=== PATIENT | female | born 1990 | race Hispanic/Latino ===

== ENCOUNTER → 2017-02-26 | Outpatient (CLI) | payer OTHER ==
--- NOTE | 2017-02-27 10:39 | Diagnostic Imaging Report ---
INDICATION: survey. TECHNIQUE: Multiple real-time grayscale images were obtained over the gravid uterus. COMPARISON: None FINDINGS: Transabdominal and limited transvaginal views were obtained. The examination demonstrates no abnormalities. There is normal cord insertion. The cervix is normal length measuring 4.1 cm. Gestational age by today's ultrasound is 21 weeks and 1 day. No previa is seen. IMPRESSION: There is a single live intrauterine in cephalic position with normal heart rate. Gestational age by today's ultrasound is 21 weeks and 1 day. Biometrical measurements are as follows: Biparietal 5.07 cm, age 21 weeks 3 days. Head circumference 18.2 cm, age 20 weeks 5 days. Abdominal circumference 16.08 cm, age 21 weeks 2 days. Femur length 3.4 cm, age 20 weeks 5 days. Sonographic estimate age: 21 weeks 1 days. Sonographic estimated date of delivery: 07/08/2017. Estimated Weight: 387 gm (+/- +/- 57 gm). LMP percentile: 34%. heart rate: 144 beats per minute. Cervical length: 4.1 CM cm. number: 1 of 1. Dictated by: Dictated on workstation # [id number]
== END ==
LOC: RAD 17:05
PROVIDERS: ATTEND Obstetrics & Gynecology
DX: Z36 Encounter for antenatal screening of mother (principal); Z3A.21 21 weeks gestation of pregnancy
CPT/HCPCS: 76805; 76817

== ENCOUNTER 2017-07-08 18:00 | Inpatient (IN) | payer OTHER ==
[~2017-07-08] VITALS: Ht 167.6 cm; Wt 83.9 kg
[2017-07-08 18:05] VITALS: BP 121/76
[2017-07-08] MEDS ORDERED: PYRI25TA3 PO (18:41)
[2017-07-08] MEDS ORDERED: DOXY25TA46 PO (18:41)
[2017-07-08] MEDS ORDERED: PREN1TAB86 PO (18:41)
[2017-07-08] MEDS ORDERED: D5 LR IV SOLUTION 1,000 ML IV ONE (20:08)
[2017-07-08] MEDS: D5 LR IV SOLUTION 1,000 ML IV SCH (20:45)
[2017-07-08 21:09] LABS: BASOPHILS % (AUTO) 0 % (0-10); EOSINOPHILS # (AUTO) 0.1 10^3/uL (0.0-0.3); EOSINOPHILS % (AUTO) 1 % (0-10); LYMPHOCYTES # (AUTO) 1.8 X 10^3 (1.0-4.0); LYMPHOCYTES % (AUTO) 31 % (12-44); MEAN CORPUSCULAR HEMOGLOBIN 28 PG (25-34); MEAN CORPUSCULAR HGB CONC 33 G/DL (32-36); MEAN CORPUSCULAR VOLUME 85 FL (80-99); MEAN PLATELET VOLUME 10.7 FL (7.4-10.4); MONOCYTES # (AUTO) 0.9 X 10^3 (0.0-1.0); MONOCYTES % (AUTO) 16 % (0-12); NEUTROPHILS % (AUTO) 52 % (42-75); PLATELET COUNT 276 10^3/uL (130-400); RED BLOOD COUNT 4.65 10^6/uL (4.35-5.85); WHITE BLOOD COUNT 5.8 10^3/uL (4.3-11.0)
[2017-07-08] MEDS ORDERED: HYDROmorphone (DILAUDID) 2 MG/ML VIAL IVP ONE (21:15)
[2017-07-08] MEDS ORDERED: MINERAL OIL CONCENTRATE 99.9% 15 ML UDC TOP PRN (21:15)
[2017-07-08 23:56] VITALS: BP 121/76
[2017-07-09] VITALS (50 sets, daily range): BP systolic 91–132; BP diastolic 46–78
[2017-07-09] MEDS: D5 LR IV SOLUTION 1,000 ML IV SCH (00:45)
[2017-07-09] MEDS: CATHETER FLUSH 10 ML SYR IV SCH ×2 (05:35→07:16)
--- NOTE | 2017-07-09 08:44 | History & Physical-OB ---
OB - Chief Complaint & HPI Date/Time Date of Admission: Date of Admission: Jul 08, 2017 at 9:07 pm Time Seen by Provider: 08:25 Chief Complaint/History OB-Reason for Admission/Chief: Onset of Labor Hx : 2 Hx Para: 0 Expected Date of Delivery: Jul 09, 2017 Gestational Age in Weeks: 40 Other reason for admission: This 26-year-old is 40 weeks gestation and presented last night in early labor monitoring overnight revealed regular contractions with a small amount of cervical change. Admission Nurse Assessment Rev: Yes History of Labs O pos Antibody neg RI RPR NR HBsAg NR HIV NR GC neg GBS neg Allergies and Home Medications Allergies Coded Allergies: No Known Drug Allergies (Unverified , 07/08/17) Home Medications Doxylamine Succinate 25 Mg Tablet, 25 MG PO HS PRN for SLEEP, (Reported) Vit W-Ca,Fe,FA(<1 mg) 1 Each Tablet, 1 TAB PO DAILY, (Reported) Pyridoxine HCl 25 Mg Tablet, 25 MG PO DAILY, (Reported) OB - History Hx of Present Care: Yes Ultrasounds: Normal mid trimester US Obstetrical Complications: None Medical Complications: None Obstetrical History Hx : 2 Hx Para: 1 Hx Total # of Abortions (Spona: 1 Patient Past Medical History none Social History/Family History Recent Infectious Disease Expo: No Alcohol Use: Denies Use Recreational Drug Use: No OB - Admission Exam Physical Exam Date Seen by Provider: Jul 09, 2017 Time Seen by Provider: 08:20 Vitals: Vital Signs 07/09/17 04:00 Temp 96.9 Pulse 83 Resp 18 B/P (MAP) 95/56 O2 Delivery Room Air HEENT: NCAT Heart: Rhythm Normal Lungs: Clear Abdomen: Gravid Extremities: Normal Reflexes: Normal Cervical Dilatation: 2cm Effacement: 75% Station: -1 Membranes: Intact Heart Rate: 140's Accelerations: Accelerations Present Decelerations: No Decelerations Short Term Variability: Present Senior Care Variability: Average (6-25) Contractions on Admission: 6-10 Minutes Apart Intensity: Moderate Labs Laboratory Tests Test 07/08/17 20:45 Range/Units White Blood Count 5.8 4.3-11.0 10^3/uL Red Blood Count 4.65 4.35-5.85 10^6/uL Hemoglobin 13.0 11.5-16.0 G/DL Hematocrit 39 35-52 % Mean Corpuscular Volume 85 80-99 FL Mean Corpuscular Hemoglobin 28 25-34 PG Mean Corpuscular Hemoglobin Concent 33 32-36 G/DL Red Cell Distribution Width 13.0 10.0-14.5 % Platelet Count 276 130-400 10^3/uL Mean Platelet Volume 10.7 H 7.4-10.4 FL Neutrophils (%) (Auto) 52 42-75 % Lymphocytes (%) (Auto) 31 12-44 % Monocytes (%) (Auto) 16 H 0-12 % Eosinophils (%) (Auto) 1 0-10 % Basophils (%) (Auto) 0 0-10 % Neutrophils # (Auto) 3.0 1.8-7.8 X 10^3 Lymphocytes # (Auto) 1.8 1.0-4.0 X 10^3 Monocytes # (Auto) 0.9 0.0-1.0 X 10^3 Eosinophils # (Auto) 0.1 0.0-0.3 10^3/uL Basophils # (Auto) 0.0 0.0-0.1 10^3/uL OB - Assessment/Plan/Diagnosis Assessment Assessment: active labor Plan Other Plan AROM this AM clear fluid noted. Discharge Diagnosis Diagnosis: 26 yo @ 40 weeks GBS neg OBDULIO ANSARI DO Jul 09, 2017 8:44 am
[2017-07-09] MEDS ORDERED: OXYTOCIN/NORMAL SALINE 500 ML IV SCH (12:29)
[2017-07-09] MEDS ORDERED: ONDANSETRON 4 MG/2 ML (SDV) Z0FRAN ONE (22:35)
[2017-07-09] MEDS ORDERED: LIDOCAINE/EPI 2% 1:200,00 (XYLOCAINE) 10 ML VIAL ONE (23:55)
[2017-07-10] VITALS (13 sets, daily range): BP systolic 96–124; BP diastolic 50–76
[2017-07-10] MEDS ORDERED: OXYTOCIN/NORMAL SALINE 500 ML IV SCH (01:12)
[2017-07-10] MEDS ORDERED: MEASLES,MUMPS,RUBELLA 1 EA INJ SQ ONE (01:15)
[2017-07-10] MEDS ORDERED: APAP 300 MG/CODEINE 30 MG (TYLENOL #3) TAB PO PRN (01:15)
[2017-07-10] MEDS ORDERED: BENZOCAINE/MENTHOL (DERMOPLAST) 56 ML CAN TP PRN (01:15)
[2017-07-10] MEDS ORDERED: DIBUCAINE (NUPERCAINAL) 1% OINT 30 GM TOP PRN (01:15)
[2017-07-10] MEDS ORDERED: WITCH HAZEL(TUCKS) 40 EA JAR TOP PRN (01:15)
[2017-07-10] MEDS ORDERED: TETANUS,DIPTH,PERTUSS P/F (BOOSTRIX) 0.5 ML VIAL IM ONE (01:15)
--- NOTE | 2017-07-10 01:17 | OB Labor & Delivery Record ---
L&D History Date of Service Date of Service: Jul 10, 2017 History Expected Date of Delivery: Jul 09, 2017 Gestational Age in Weeks: 40 Hx : 2 Hx Para: 0 Complications Events: Routine care Operative Indications (Cesarea: N/A-Vaginal Delivery Intrapartal Events: None L&D Stage1 Stage One Onset of Labor - Date: Jul 10, 2017 Monitors and Tracing Monitor Mode: External Heart Rate: 145 Monitor Decelerations: Variable Station: -2 Vital Signs VS - Last 72 Hours, by Label 07/08/17 07/08/17 07/09/17 07/09/17 18:05 23:56 02:10 04:00 Temp 97.5 97.0 97.0 96.9 Pulse 95 105 96 83 Resp 18 18 18 18 B/P (MAP) 121/76 121/76 91/46 95/56 O2 Delivery Room Air Room Air Room Air Room Air 07/09/17 07/09/17 07/09/17 07/09/17 07:15 09:53 10:25 10:55 Temp 96.8 96.8 Pulse 84 88 86 100 Resp 18 18 18 18 B/P (MAP) 121/67 112/63 109/75 113/70 O2 Delivery Room Air Room Air Room Air Room Air 07/09/17 07/09/17 07/09/17 07/09/17 11:25 11:55 12:25 12:58 Temp 97.5 Pulse 84 86 87 96 Resp 18 18 18 18 B/P (MAP) 101/55 106/72 111/64 114/70 O2 Delivery Room Air Room Air Room Air Room Air 07/09/17 07/09/17 07/09/17 07/09/17 13:14 13:45 13:58 14:15 Temp 97.4 Pulse 89 93 91 85 Resp 18 18 18 18 B/P (MAP) 91/55 112/63 107/58 115/66 O2 Delivery Room Air Room Air Room Air Room Air 07/09/17 07/09/17 07/09/17 07/09/17 14:30 14:45 14:59 15:14 Temp 97.3 Pulse 84 85 84 92 Resp 18 18 18 18 B/P (MAP) 114/62 111/61 113/65 110/65 O2 Delivery Room Air Room Air Room Air Room Air 07/09/17 07/09/17 07/09/17 07/09/17 15:30 15:45 16:00 16:15 Temp 96.9 Pulse 90 82 93 102 Resp 18 18 18 18 B/P (MAP) 113/66 116/64 110/69 120/75 O2 Delivery Room Air Room Air Room Air Room Air 07/09/17 07/09/17 07/09/17 07/09/17 16:28 16:45 17:00 17:15 Pulse 103 90 85 86 Resp 18 18 18 18 B/P (MAP) 123/75 114/67 115/69 112/77 O2 Delivery Room Air Room Air Room Air Room Air 07/09/17 07/09/17 07/09/17 07/09/17 17:45 18:00 18:15 18:30 Temp 97.4 Pulse 85 78 84 94 Resp 18 18 18 18 B/P (MAP) 129/59 111/63 115/64 110/75 O2 Delivery Room Air Room Air Room Air Room Air 07/09/17 07/09/17 07/09/17 07/09/17 18:44 18:59 19:15 19:30 Temp 97.8 Pulse 88 85 92 Resp 18 18 18 B/P (MAP) 106/59 111/63 114/69 O2 Delivery Room Air Room Air Room Air 07/09/17 07/09/17 07/09/17 07/09/17 19:45 20:00 20:15 20:30 Pulse 91 85 90 Resp 18 18 18 18 B/P (MAP) 109/67 107/63 119/74 116/66 O2 Delivery Room Air Room Air Room Air Room Air 07/09/17 07/09/17 07/09/17 07/09/17 20:45 21:00 21:15 21:30 Pulse 99 88 88 89 Resp 18 18 18 18 B/P (MAP) 118/70 121/70 121/78 117/73 O2 Delivery Room Air Room Air Room Air Room Air 07/09/17 07/09/17 07/09/17 07/09/17 21:45 22:00 22:15 22:30 Pulse 87 98 93 90 Resp 18 18 18 18 B/P (MAP) 119/70 116/70 122/69 121/69 O2 Delivery Room Air Room Air Room Air Room Air 07/09/17 07/09/17 22:45 23:00 Pulse 117 107 Resp 18 18 B/P (MAP) 107/60 123/72 O2 Delivery Room Air Room Air Rupture of Membranes Spontaneous Ruture of Membrane: No Amniotic Membrane Rupture Time: 0830 Amniotic Membrane Fluid Desc.: Meconium Stained Vaginal Bleeding Description: Normal Show Progress/Notes Patient had AROM, and pitocin was started and titrated to an adequate contraction pattern. No analgesia requested by the patient throughout the day, she progressed to complete and + 2 station. L&D Stage2 Stage Two Stage II Date: Jul 10, 2017 Monitors and Tracing Monitor Mode: External Heart Rate: 145 Monitor Decelerations: Variable Short Term Variability: Present Position: Right Occiput Anterior Presentation: Vertex Cord Descript/Complications Cord Vessel Description: 3 Vessels Complications nuchal cord reduced x 2 Delivery Type Infant Delivery Method: Spontaneous Vaginal Anterior Shoulder: Right Episiotomy/Perineal Laceration Laceraction(s)/Extensions: Yes Episiotomy Description: Right Mediolateral Location Modifier: Right Degree (describe repair) RML repaired using 3-0 rapide and 2-0 vicryl in usual fashion Condition of Infant Delivery 1 minute Comment: 8 5 minute Comment: 9 Notes live male 8lbs 8 oz Condition of Condition of Infant: Living Exam: No Observed Abnormalities Resuscitation Resuscitation: N/A - Spontaneous Resp L&D Stage3 Stage Three Stage III Date: Jul 10, 2017 Pictocin Pitocin Administration mu/min: 14 Pitocin ml/hr: 14 Pitocin Administration Comment: 30 mu wide open at delivery of placenta Placenta Delivery Placenta Delivery: Spontaneous Delivery Summary Summary blood loss >1000ml: No Vaginal blood loss >500ml: No 300 Attending at delivery: Obdulio Ansari DO Condition of Delivery Examined: Cervix Examined, Uterus Explored Post Hemorrhage: No Condition of Mother stable Condition of (s) stable OBDULIO ANSARI DO Jul 10, 2017 1:17 am
[2017-07-10] MEDS: IBUPROFEN 600 MG (MOTRIN) TAB PO SCH ×4 (01:56→21:52)
[2017-07-10] MEDS ORDERED: ONDANSETRON 4 MG/2 ML (SDV) Z0FRAN IVP ONE (04:00)
[2017-07-10] MEDS ORDERED: CATHETER FLUSH 10 ML SYR IV SCH (06:00)
[2017-07-10 06:55] LABS: BASOPHILS % (AUTO) 0 % (0-10); EOSINOPHILS % (AUTO) 0 % (0-10); LYMPHOCYTES # (AUTO) 1.1 X 10^3 (1.0-4.0); LYMPHOCYTES % (AUTO) 14 % (12-44); MEAN CORPUSCULAR HEMOGLOBIN 28 PG (25-34); MEAN CORPUSCULAR HGB CONC 33 G/DL (32-36); MEAN CORPUSCULAR VOLUME 85 FL (80-99); MEAN PLATELET VOLUME 10.2 FL (7.4-10.4); MONOCYTES # (AUTO) 1.6 X 10^3 (0.0-1.0); MONOCYTES % (AUTO) 21 % (0-12); NEUTROPHILS # (AUTO) 5.2 X 10^3 (1.8-7.8); NEUTROPHILS % (AUTO) 66 % (42-75); PLATELET COUNT 256 10^3/uL (130-400); RED BLOOD COUNT 4.05 10^6/uL (4.35-5.85); RED CELL DISTRIBUTION WIDTH 12.8 % (10.0-14.5)
[2017-07-10] MEDS ORDERED: BENZ56AE2 TP (08:21)
[2017-07-10] MEDS ORDERED: FERR-74 PO (08:21)
[2017-07-10] MEDS ORDERED: IBUP-1773 PO (08:21)
[2017-07-10] MEDS ORDERED: ACET1TAB43 PO (08:21)
[2017-07-10] MEDS ORDERED: DOCU100C37 PO (08:21)
--- NOTE | 2017-07-10 08:22 | Discharge Inst-Women's Service ---
Discharge Inst-Women's Serv Depart Medication/Instructions New, Converted or Re-Newed RX: RX on Chart Consults/Follow Up Additional Follow Up: Yes Orders/Referrals Dr. Ansari in 6 weeks Activity Activity: Activity as Tolerated Driving Instructions: No Driving for 1 Week NO SMOKING: NO SMOKING Nothing Inside Vagina: No Douching, No [place], No Tampons Diet Discharge Diet: No Restrictions Symptoms to Report to : Bleeding Excessive, Pain Increased, Fever Over 101 Degrees F, Vaginal Bleeding Increase, Questions/Concerns For Any Problems or Questions: Contact Your Physician Skin/Wound Care Bathing Instructions: Shower (x 2 weeks) OBDULIO ANSARI DO Jul 10, 2017 8:22 am
[2017-07-10] MEDS: DOCUSATE SODIUM 100 MG (COLACE) CAP PO SCH ×2 (09:59→21:52)
[2017-07-10] MEDS: FERROUS SULF 325 MG (IRON) TAB PO SCH (09:59)
[2017-07-10] MEDS: PRENATAL VITAMIN 1 EA TAB PO SCH (09:59)
[2017-07-11 03:15] VITALS: BP 102/68
[2017-07-11] MEDS: IBUPROFEN 600 MG (MOTRIN) TAB PO SCH ×2 (03:15→08:39)
[2017-07-11 06:46] LABS: BASOPHILS % (AUTO) 0 % (0-10); EOSINOPHILS # (AUTO) 0.1 10^3/uL (0.0-0.3); EOSINOPHILS % (AUTO) 2 % (0-10); LYMPHOCYTES # (AUTO) 2.6 X 10^3 (1.0-4.0); LYMPHOCYTES % (AUTO) 37 % (12-44); MEAN CORPUSCULAR HEMOGLOBIN 28 PG (25-34); MEAN CORPUSCULAR HGB CONC 32 G/DL (32-36); MEAN CORPUSCULAR VOLUME 87 FL (80-99); MEAN PLATELET VOLUME 10.6 FL (7.4-10.4); MONOCYTES # (AUTO) 1.3 X 10^3 (0.0-1.0); MONOCYTES % (AUTO) 18 % (0-12); NEUTROPHILS % (AUTO) 43 % (42-75); PLATELET COUNT 229 10^3/uL (130-400); RED BLOOD COUNT 3.26 10^6/uL (4.35-5.85); RED CELL DISTRIBUTION WIDTH 12.9 % (10.0-14.5)
[2017-07-11] MEDS: DOCUSATE SODIUM 100 MG (COLACE) CAP PO SCH (08:39)
[2017-07-11] MEDS: FERROUS SULF 325 MG (IRON) TAB PO SCH (08:39)
[2017-07-11] MEDS: PRENATAL VITAMIN 1 EA TAB PO SCH (08:39)
[2017-07-11 08:40] VITALS: BP 96/65
--- NOTE | 2017-07-11 11:09 | Progress Note-Standard ---
Standard Progress Note Progress Notes/Assess & Plan Date Seen by Provider: Jul 11, 2017 Time Seen by Provider: 07:05 Progress/Assessment & Plan Patient doing well PPD 2 NVD. Reports lochia is light, pain well controlled. Ambulating and voiding freely. No concerns voiced. Vital Sign - Last 24 Hours 07/10/17 07/10/17 07/11/17 07/11/17 15:30 19:25 03:15 08:40 Temp 96.5 98.4 98.1 96.0 Pulse 117 65 76 91 Resp 18 18 18 18 B/P (MAP) 118/76 99/65 102/68 96/65 Pulse Ox 97 98 98 99 O2 Delivery Room Air Room Air Room Air Room Air Laboratory Tests Test 07/11/17 06:25 Range/Units White Blood Count 7.0 4.3-11.0 10^3/uL Red Blood Count 3.26 L 4.35-5.85 10^6/uL Hemoglobin 9.1 L 11.5-16.0 G/DL Hematocrit 28 L 35-52 % Mean Corpuscular Volume 87 80-99 FL Mean Corpuscular Hemoglobin 28 25-34 PG Mean Corpuscular Hemoglobin Concent 32 32-36 G/DL Red Cell Distribution Width 12.9 10.0-14.5 % Platelet Count 229 130-400 10^3/uL Mean Platelet Volume 10.6 H 7.4-10.4 FL Neutrophils (%) (Auto) 43 42-75 % Lymphocytes (%) (Auto) 37 12-44 % Monocytes (%) (Auto) 18 H 0-12 % Eosinophils (%) (Auto) 2 0-10 % Basophils (%) (Auto) 0 0-10 % Neutrophils # (Auto) 3.0 1.8-7.8 X 10^3 Lymphocytes # (Auto) 2.6 1.0-4.0 X 10^3 Monocytes # (Auto) 1.3 H 0.0-1.0 X 10^3 Eosinophils # (Auto) 0.1 0.0-0.3 10^3/uL Basophils # (Auto) 0.0 0.0-0.1 10^3/uL Uterine fundus firm and below umbilicus Diagnosis: PPD 1 NVD Acute blood loss anemia P: Continue routine PP care Replace iron Discharge later today OBDULIO ANSARI DO Jul 11, 2017 11:09 am
[2017-07-11 13:45] VITALS: BP 119/77
== END 2017-07-11 15:50 | disposition home or self-care (01) | DRG 775 ==
LOC: LDRP 18:00 → WSo 18:00 → LDRP 21:07 → WSo 21:09 → LDRP 07-10 02:30
PROVIDERS: ADMIT Obstetrics & Gynecology; ATTEND Obstetrics & Gynecology
PROC: 10E0XZZ Delivery of Products of Conception, External Approach (ICD-10-PCS; principal; 2017-07-10)
PROC: 0W8NXZZ Division of Female Perineum, External Approach (ICD-10-PCS; 2017-07-10)
DX: Z3A.40 40 weeks gestation of pregnancy; Z37.0 Single live birth; D64.9 Anemia, unspecified; O69.81X0 Labor and delivery complicated by cord around neck, without compression, not applicable or unspecified; O99.03 Anemia complicating the puerperium
CPT/HCPCS: 36415; 85025; 86850; 86900; 86901; 99212

== ENCOUNTER → 2018-07-22 | Outpatient (CLI) | payer OTHER ==
[~2018-07-22] MED LIST: ACET1TAB43 PO; BENZ56AE2 TP; DOCU100C37 PO; FERR325T18 PO; IBUP-1773 PO; PREN1TAB86 PO; PYRI25TA3 PO; UNISOM25 M1 PO
--- NOTE | 2018-07-22 12:35 | Diagnostic Imaging Report ---
INDICATION: survey. TECHNIQUE: Multiple real-time grayscale images were obtained over the gravid uterus. COMPARISON: None. FINDINGS: There are no prior studies available for comparison. There is a single live fetus in variable presentation. heart motion was noted and a rate of 129 bpm was recorded. There are no abnormalities identified. The growth parameters are fairly uniform. The placenta is posterior and there is no previa. The amniotic fluid volume is within normal limits. The cervix is not measured, but the cervix appears to be normal in length. Biometrical measurements are as follows: Biparietal 4.61 cm, age 20 weeks 0 days. Head circumference 17.52 cm, age 20 weeks 1 days. Abdominal circumference 14.01 cm, age 19 weeks 3 days. Femur length 3.23 cm, age 20 weeks 1 days. Sonographic estimate age: 20 weeks 0 days. Sonographic estimated date of delivery: 12/09/2018. Estimated Weight: 311 gm (+/- 45 gm). LMP percentile: 25%. heart rate: 129 beats per minute. number: 1 of 1. IMPRESSION: 1. There is a single live fetus of approximately 20 weeks gestation +/- 1 week. The EDC is December 09, 2018. 2. There are no abnormalities identified. 3. The growth parameters are fairly uniform. Dictated by: Dictated on workstation # [id number]
== END ==
LOC: RAD 10:09
PROVIDERS: ATTEND Obstetrics & Gynecology
DX: Z36.89 Encounter for other specified antenatal screening (principal); Z3A.20 20 weeks gestation of pregnancy
CPT/HCPCS: 76805

== ENCOUNTER 2018-12-09 05:02 | Inpatient (IN) | payer BC, OTHER ==
[~2018-12-09] VITALS: Ht 170.2 cm; Wt 84.8 kg
[2018-12-09] VITALS (15 sets, daily range): BP systolic 100–133; BP diastolic 55–86
--- NOTE | 2018-12-09 05:10 | NUR ---
CULLEN CHASE presented to unit via wheelchair from ED, accompanied by , with c/o CONTRACTIONS,FLUID LEAKAGE. CULLEN CHASE weighed, gowned, voided, and to bed. EFHM and TOCO applied, VS taken. CULLEN CHASE oriented to bed controls, call light, TV, heat, and A/C controls.
[2018-12-09] MEDS ORDERED: MINERAL OIL CONCENTRATE 99.9% 15 ML UDC TOP PRN (05:30)
[2018-12-09] MEDS ORDERED: D5 LR IV SOLUTION 1,000 ML IV SCH (05:30)
[2018-12-09] MEDS ORDERED: D5 LR IV SOLUTION 1,000 ML IV ONE (05:40)
[2018-12-09] MEDS ORDERED: CATHETER FLUSH 10 ML SYR IV SCH ×2 (06:00→14:00)
[2018-12-09 06:07] LABS: BASOPHILS % (AUTO) 0 % (0-10); EOSINOPHILS # (AUTO) 0.1 10^3/uL (0.0-0.3); EOSINOPHILS % (AUTO) 2 % (0-10); HEMATOCRIT 39 % (35-52); HEMOGLOBIN 12.6 G/DL (11.5-16.0); LYMPHOCYTES # (AUTO) 1.8 X 10^3 (1.0-4.0); LYMPHOCYTES % (AUTO) 27 % (12-44); MEAN CORPUSCULAR HEMOGLOBIN 28 PG (25-34); MEAN CORPUSCULAR HGB CONC 33 G/DL (32-36); MEAN CORPUSCULAR VOLUME 85 FL (80-99); MEAN PLATELET VOLUME 10.5 FL (7.4-10.4); MONOCYTES # (AUTO) 1.1 X 10^3 (0.0-1.0); MONOCYTES % (AUTO) 17 % (0-12); NEUTROPHILS # (AUTO) 3.6 X 10^3 (1.8-7.8); NEUTROPHILS % (AUTO) 54 % (42-75); PLATELET COUNT 217 10^3/uL (130-400); RED CELL DISTRIBUTION WIDTH 12.7 % (10.0-14.5); WHITE BLOOD COUNT 6.6 10^3/uL (4.3-11.0)
[2018-12-09] MEDS ORDERED: FLU QUADRIvalent (5+ YOA) 2018-2019 (AFLURIA) 0.5 ML IM ONE (06:45)
--- NOTE | 2018-12-09 07:32 | History & Physical-OB ---
OB - Chief Complaint & HPI Date/Time Date of Admission: Date of Admission: Dec 09, 2018 at 05:26 Date seen by a Provider: Dec 09, 2018 Time Seen by a Provider: 07:55 Chief Complaint/History OB-Reason for Admission/Chief: Onset of Labor Hx : 2 Hx Para: 1 Expected Date of Delivery: Dec 08, 2018 Gestational Age in Weeks: 40 Gestational Age in Days: 1 Admission Nurse Assessment Rev: Yes History of Labs SEE PN RECORDS GBS neg Allergies and Home Medications Allergies Coded Allergies: No Known Drug Allergies (Unverified , 07/08/17) Home Medications Ferrous Sulfate 325 Mg Tablet, 325 MG PO DAILY Prescribed by: OBDULIO ANSARI on 07/10/17 0821 Vit W-Ca,Fe,FA(<1 mg) 1 Each Tablet, 1 TAB PO DAILY, (Reported) Patient Home Medication List Home Medication List Reviewed: Yes OB - History Hx of Present Care: Yes Ultrasounds: Normal mid trimester US Obstetrical Complications: None Medical Complications: None Delivery History Adverse Rxn to Tranfusion: No Patient Past Medical History none Social History/Family History Alcohol Use: Denies Use Recreational Drug Use: No OB - Admission Exam Physical Exam HEENT: NCAT Heart: Rhythm Normal Lungs: Clear Abdomen: Gravid Extremities: Normal Reflexes: Normal Cervical Dilatation: 6cm Effacement: 75% Station: -1 Membranes: Intact Heart Rate: 130's Accelerations: Accelerations Present Decelerations: No Decelerations Short Term Variability: Present Supervisor [employer] Variability: Average (6-25) Contractions on Admission: 6-10 Minutes Apart Labs Laboratory Tests Test 12/09/18 05:45 Range/Units White Blood Count 6.6 4.3-11.0 10^3/uL Red Blood Count 4.54 4.35-5.85 10^6/uL Hemoglobin 12.6 11.5-16.0 G/DL Hematocrit 39 35-52 % Mean Corpuscular Volume 85 80-99 FL Mean Corpuscular Hemoglobin 28 25-34 PG Mean Corpuscular Hemoglobin Concent 33 32-36 G/DL Red Cell Distribution Width 12.7 10.0-14.5 % Platelet Count 217 130-400 10^3/uL Mean Platelet Volume 10.5 H 7.4-10.4 FL Neutrophils (%) (Auto) 54 42-75 % Lymphocytes (%) (Auto) 27 12-44 % Monocytes (%) (Auto) 17 H 0-12 % Eosinophils (%) (Auto) 2 0-10 % Basophils (%) (Auto) 0 0-10 % Neutrophils # (Auto) 3.6 1.8-7.8 X 10^3 Lymphocytes # (Auto) 1.8 1.0-4.0 X 10^3 Monocytes # (Auto) 1.1 H 0.0-1.0 X 10^3 Eosinophils # (Auto) 0.1 0.0-0.3 10^3/uL Basophils # (Auto) 0.0 0.0-0.1 10^3/uL OB - Assessment/Plan/Diagnosis Assessment Assessment: active labor Admission Dx 28 yo @ 40.1 Active labor GBS neg Admission Status: Inpatient Order (span 2 midnights) Reason for Inpatient Admission: Active labor at term Plan Plan: Expectant Management OBDULIO ANSARI DO Dec 09, 2018 07:32
[2018-12-09] MEDS ORDERED: OXYTOCIN/NORMAL SALINE 500 ML IV ONE ×2 (08:03→09:11)
[2018-12-09] MEDS ORDERED: LIDOCAINE/EPI 2% 1:200,00 (XYLOCAINE) 10 ML VIAL ONE (08:03)
[2018-12-09] MEDS: OXYTOCIN/NORMAL SALINE 500 ML IV SCH ×2 (08:44→09:16)
[2018-12-09] MEDS ORDERED: BENZOCAINE/MENTHOL (DERMOPLAST) 56 ML CAN TP PRN (09:00)
[2018-12-09] MEDS ORDERED: WITCH HAZEL(TUCKS) 40 EA JAR TOP PRN (09:00)
[2018-12-09] MEDS ORDERED: HYDROcodone/APAP 5 MG/325 MG (LORTAB) TAB PO PRN (09:00)
[2018-12-09] MEDS ORDERED: TETANUS,DIPTH,PERTUSS P/F (BOOSTRIX) 0.5 ML VIAL IM ONE (09:00)
[2018-12-09] MEDS ORDERED: MEASLES,MUMPS,RUBELLA 1 EA INJ SQ ONE (09:00)
[2018-12-09] MEDS ORDERED: FERROUS SULF 325 MG (IRON) TAB PO SCH (09:00)
--- NOTE | 2018-12-09 09:05 | OB Labor & Delivery Record ---
L&D History Date of Service Date of Service: Dec 09, 2018 History Expected Date of Delivery: Dec 08, 2018 Gestational Age in Weeks: 40 Hx : 2 Hx Para: 1 Complications Events: Meconium Stained Fluid, Routine care Operative Indications (Cesarea: N/A-Vaginal Delivery Intrapartal Events: None L&D Stage1 Stage One Onset of Labor - Date: Dec 09, 2018 Monitors and Tracing Monitor Mode: External Heart Rate: 130 Monitor Decelerations: None Station: -2 Advertising Copy Writer Variability: Average (6-10) Short Term Variability: Present Presentation: Vertex Vital Signs VS - Last 72 Hours, by Label 12/09/18 12/09/18 12/09/18 05:30 06:15 06:45 Temp 98.2 Pulse 110 90 81 Resp 18 18 18 B/P (MAP) 118/75 (89) 116/71 (86) 102/72 (82) O2 Delivery Room Air Room Air Room Air Rupture of Membranes Spontaneous Ruture of Membrane: No Amniotic Membrane Fluid Desc.: Meconium Stained Vaginal Bleeding Description: Normal Show Progress/Notes After AROM patient rapidly progressed to complete and +1 station L&D Stage2 Stage Two Stage II Date: Dec 09, 2018 Monitors and Tracing Monitor Mode: External Heart Rate: 130 Monitor Accelerations: Uniform Monitor Decelerations: Variable Senior Living Variability: Average (6-10) Short Term Variability: Present Position: Right Occiput Anterior Presentation: Vertex Cord Descript/Complications Cord Vessel Description: 3 Vessels Delivery Type Infant Delivery Method: Spontaneous Vaginal Anterior Shoulder: Right Episiotomy/Perineal Laceration Laceraction(s)/Extensions: Yes Episiotomy Description: Midline, 1st degree Degree (describe repair) Repaired midline laceration using 3-0 rapide suture Condition of Delivery 1 minute Comment: 8 5 minute Comment: 9 Notes Live male infant weight 8lbs 8oz Condition of Infant Condition of : Living Exam: No Observed Abnormalities Resuscitation Resuscitation: N/A - Spontaneous Resp L&D Stage3 Stage Three Stage III Date: Dec 09, 2018 Pictocin Pitocin Administration Comment: 30 mu wide open at delivery of placenta Placenta Delivery Placenta Delivery: Spontaneous Delivery Summary Summary Estimated blood loss (mL): 350 Attending at delivery: Obdulio Ansari DO Condition of Delivery Examined: Cervix Examined, Uterus Explored Post Hemorrhage: No Condition of Mother stable Condition of Infant (s) stable OBDULIO ANSARI DO Dec 09, 2018 09:05
[2018-12-09] MEDS ORDERED: BENZOCAINE/MENTHOL (DERMOPLAST) 56 ML CAN TP ONE (09:15)
[2018-12-09] MEDS ORDERED: IBUPROFEN 600 MG (MOTRIN) TAB PO ONE (09:15)
[2018-12-09] MEDS: IBUPROFEN 600 MG (MOTRIN) TAB PO SCH ×3 (09:20→21:09)
--- NOTE | 2018-12-09 10:45 | NUR ---
REFER TO LABOR FLOW SHEET.
--- NOTE | 2018-12-09 11:18 | NUR ---
PT RESTING UPON THIS RN ENTERING ROOM. PT READY TO GO SEE INFANT. PT SITTING UP ON THE SIDE OF THE BED, DENIES FEELING LIGHT HEADED OR DIZZY. PT AMBULATES TO THE BATHROOM WITH STAND BY ASSIST X1. + VOID, + PERICARE. PAD AND PANTIES ON. NEW GOWN. PT UP IN ROOM, PERSONAL BELONGINGS GATHERED. PT AMBULATES FROM WS-320 TO NURSERY IN STABLE CONDITION ACC BY THIS RN AND S/O.
--- NOTE | 2018-12-09 12:49 | NUR ---
PT IN BED, FAMILY AT THE BEDSIDE. VS OBTAINED. NO NEEDS VOICED AT THIS TIME.
--- NOTE | 2018-12-09 15:30 | NUR ---
PT IN THE NURSERY WITH S/O, SEEING . ROUTINE MOTRIN GIVEN PO; SEE EMAR FOR FURTHER. PT DENIES ANY NEEDS.
--- NOTE | 2018-12-09 16:45 | NUR ---
PT PUMPING. S/O AT THE BEDSIDE. NO NEEDS VOICED. WILL RETURN LATER FOR VS.
--- NOTE | 2018-12-09 17:36 | NUR ---
PT IN NURSERY TO SEE , VS OBTAINED. NO NEEDS VOICED. EXPRESSED COLOSTRUM PULLED INTO A SYRINGE AND PROVIDED TO INFANT.
[2018-12-09] MEDS: DOCUSATE SODIUM 100 MG (COLACE) CAP PO SCH (21:09)
[2018-12-10 01:35] VITALS: BP 103/55
[2018-12-10] MEDS: IBUPROFEN 600 MG (MOTRIN) TAB PO SCH ×2 (03:34→15:38)
[2018-12-10 06:13] LABS: BASOPHILS % (AUTO) 0 % (0-10); EOSINOPHILS # (AUTO) 0.1 10^3/uL (0.0-0.3); EOSINOPHILS % (AUTO) 1 % (0-10); HEMATOCRIT 34 % (35-52); HEMOGLOBIN 10.9 G/DL (11.5-16.0); LYMPHOCYTES # (AUTO) 2.3 X 10^3 (1.0-4.0); LYMPHOCYTES % (AUTO) 35 % (12-44); MEAN CORPUSCULAR HEMOGLOBIN 28 PG (25-34); MEAN CORPUSCULAR HGB CONC 32 G/DL (32-36); MEAN CORPUSCULAR VOLUME 86 FL (80-99); MEAN PLATELET VOLUME 10.7 FL (7.4-10.4); MONOCYTES # (AUTO) 1.1 X 10^3 (0.0-1.0); MONOCYTES % (AUTO) 18 % (0-12); NEUTROPHILS % (AUTO) 46 % (42-75); PLATELET COUNT 192 10^3/uL (130-400); RED CELL DISTRIBUTION WIDTH 12.3 % (10.0-14.5); WHITE BLOOD COUNT 6.5 10^3/uL (4.3-11.0)
[2018-12-10 06:31] VITALS: BP 107/64
[2018-12-10] MEDS ORDERED: PRENATAL VITAMIN 1 EA TAB PO SCH (07:00)
[2018-12-10] MEDS ORDERED: DOCU100C37 PO (08:10)
[2018-12-10] MEDS ORDERED: IBUP-844 PO (08:10)
[2018-12-10] MEDS ORDERED: ACHD5005 PO (08:10)
--- NOTE | 2018-12-10 08:11 | Discharge Inst-Women's Service ---
Discharge Inst-Women's Serv Depart Medication/Instructions New, Converted or Re-Newed RX: RX on Chart Final Diagnosis PPD 1 NVD Consults/Follow Up Additional Follow Up: Yes Orders/Referrals Dr. Ansari in6 weeks Activity Activity: Activity as Tolerated Driving Instructions: No Driving for 1 Week NO SMOKING: NO SMOKING Nothing Inside Vagina: No Douching, No [place], No Tampons Diet Discharge Diet: No Restrictions Symptoms to Report to : Bleeding Excessive, Pain Increased, Fever Over 101 Degrees F, Vaginal Bleeding Increase, Questions/Concerns For Any Problems or Questions: Contact Your Physician OBDULIO ANSARI DO Dec 10, 2018 08:11
--- NOTE | 2018-12-10 08:14 | Postpartum Progress Note ---
Note Note Day # 1 Subjective: Patient is without complaints. Ambulating, voiding. Tolerating a regular diet without nausea or vomiting. Normal lochia. Pain is well controlled with oral pain medications. Objective: Physical Exam: General - Alert and oriented, no apparent distress Abdomen - Soft, appropriately tender to palpation, non-distended, fundus firm at umbilicus Extremities - no edema, negative Melissa's bilaterally Assessment: PPD 1 NVD Plan: Routine care. Encourage breast feeding. Encourage ambulation. Ferrous sulfate supplementation. Plan for discharge today Vitals - Labs Vital Signs - I&O Vital Signs Date Time Temp Pulse Resp B/P (MAP) Pulse Ox O2 Delivery O2 Flow Rate FiO2 12/10/18 06:31 97.9 81 16 107/64 (78) 99 Room Air 12/10/18 01:35 97.4 75 16 103/55 (71) 97 Room Air 12/09/18 21:11 98.0 80 16 105/64 (78) 100 Room Air 12/09/18 17:36 96.9 72 18 110/62 (78) 100 Room Air 12/09/18 12:49 97.0 95 18 102/59 (73) 98 Room Air 12/09/18 10:45 98.7 84 18 100/55 (70) Room Air 12/09/18 10:15 84 18 102/57 (72) Room Air 12/09/18 09:45 97.9 86 18 110/61 (77) Room Air 12/09/18 09:30 98.1 87 18 106/61 (76) Room Air 12/09/18 09:15 98.7 90 18 109/60 (76) Room Air 12/09/18 09:00 98.2 85 18 108/58 (75) Room Air 12/09/18 08:15 111 20 133/86 (102) Room Air I & O 12/10/18 07:00 Intake Total 1000 ml Balance 1000 ml Labs Laboratory Tests 12/10/18 05:50: White Blood Count 6.5, Red Blood Count 3.92L, Hemoglobin 10.9L, Hematocrit 34L, Mean Corpuscular Volume 86, Mean Corpuscular Hemoglobin 28, Mean Corpuscular Hemoglobin Concent 32, Red Cell Distribution Width 12.3, Platelet Count 192, Mean Platelet Volume 10.7H, Neutrophils (%) (Auto) 46, Lymphocytes (%) (Auto) 35 , Monocytes (%) (Auto) 18H, Eosinophils (%) (Auto) 1, Basophils (%) (Auto) 0, Neutrophils # (Auto) 3.0, Lymphocytes # (Auto) 2.3, Monocytes # (Auto) 1.1H, Eosinophils # (Auto) 0.1, Basophils # (Auto) 0.0 OBDULIO ANSARI DO Dec 10, 2018 08:14
--- NOTE | 2018-12-10 08:20 | NUR ---
here. dismissal orders received.
[2018-12-10 08:22] VITALS: BP 97/56
--- NOTE | 2018-12-10 08:22 | NUR ---
initial shift assessment completed, see interventions for further.
[2018-12-10 15:38] VITALS: BP 111/60
[2018-12-10] MEDS: DOCUSATE SODIUM 100 MG (COLACE) CAP PO SCH (15:38)
--- NOTE | 2018-12-10 15:42 | NUR ---
dismissal instructions given, verbalizes understanding. reviewed dismissal Rx's, copies to pt. reviewed follow up appointment. signature page signed, placed on chart. @ side for translation.
--- NOTE | 2018-12-10 15:54 | NUR ---
stork meal served.
--- NOTE | 2018-12-10 17:10 | NUR ---
pt ambulated to private vehicle with this RN, and toddler @ side. infant secured in rear facing car seat. pt stable with no sx's of distress noted.
== END 2018-12-10 17:10 | disposition home or self-care (01) | DRG 807 ==
LOC: WSo 05:02 → LDRP 05:02 → WSo 05:25 → LDRP 05:26
PROVIDERS: ADMIT Obstetrics & Gynecology; ATTEND Obstetrics & Gynecology
PROC: 10E0XZZ Delivery of Products of Conception, External Approach (ICD-10-PCS; principal; 2018-12-09)
PROC: 0HQ9XZZ Repair Perineum Skin, External Approach (ICD-10-PCS; 2018-12-09)
PROC: 0W8NXZZ Division of Female Perineum, External Approach (ICD-10-PCS; 2018-12-09)
DX: O77.0 Labor and delivery complicated by meconium in amniotic fluid (principal); O70.0 First degree perineal laceration during delivery; Z3A.40 40 weeks gestation of pregnancy; Z37.0 Single live birth
CPT/HCPCS: 36415; 85025; 86850; 86900; 86901; 99212

== ENCOUNTER → 2019-08-12 | Outpatient (CLI) | payer BC ==
[~2019-08-12] MED LIST changes: +ACHD5005 PO; +IBUP-844 PO
--- NOTE | 2019-08-12 15:58 | Diagnostic Imaging Report ---
INDICATION: Anatomy scan. TECHNIQUE: Multiple real-time grayscale images were obtained over the gravid uterus. COMPARISON: None FINDINGS: There is a single live fetus in a breech presentation. heart rate was recorded at 147 beats per minute. Placenta is anterior. Amniotic fluid volume appears normal. Cervical length is approximately 4 cm. kidneys, bladder, and stomach are unremarkable. brain is unremarkable. There is a four-chamber heart. There is a three-vessel cord with normal insertion. The spine is unremarkable. Biometrical measurements are as follows: Biparietal 5.59 cm, age 23 weeks 1 days. Head circumference 21.08 cm, age 23 weeks 2 days. Abdominal circumference 18.01 cm, age 23 weeks 0 days. Femur length 4.07 cm, age 23 weeks 2 days. Sonographic estimate age: 23 weeks 2 days. Sonographic estimated date of delivery: 12/07/2019. Estimated Weight: 556 gm (+/- 81 gm). LMP percentile: 51%. heart rate: 147 beats per minute. number: 1 of 1. IMPRESSION: Single live IUP of approximately 23 weeks 2 days gestational age. The estimated date of confinement sonographically is 12/07/2019. Dictated by: Dictated on workstation # [id number]
== END ==
LOC: RAD 12:06
PROVIDERS: ATTEND Obstetrics & Gynecology
DX: Z34.92 Encounter for supervision of normal pregnancy, unspecified, second trimester (principal); Z3A.23 23 weeks gestation of pregnancy
CPT/HCPCS: 76805

== ENCOUNTER 2019-12-10 04:26 | Inpatient (IN) | payer BC ==
[~2019-12-10] VITALS: Ht 170.2 cm; Wt 83.1 kg
[2019-12-10] VITALS (12 sets, daily range): BP systolic 94–120; BP diastolic 50–69
--- NOTE | 2019-12-10 04:30 | NUR ---
CULLEN CHASE , 40/0 presented to unit via from ED, accompanied by , with c/o CONTRACTIONS,FLUID LEAKAGE. CULLEN CHASE weighed, gowned, voided, and to bed. EFHM and TOCO applied, VS taken. CULLEN CHASE oriented to bed controls, call light, TV, heat, and A/C controls. Confirms movement.
--- NOTE | 2019-12-10 04:45 | NUR ---
0445:SVE shows pt 8-9cm dilated, 100% effaced, and -1 station. 0448: Dr. Haney called with report of pt. is on his way in.
[2019-12-10] MEDS ORDERED: D5 LR IV SOLUTION 1,000 ML IV ONE (04:46)
--- NOTE | 2019-12-10 05:12 | NUR ---
0512: Pt. states that she feels the need to push and that she needs our help. SVE shows that pt is complete, 100% effaced, and +[address] Haney called to room. Delivery table in room at this time. 0516: Dr. Haney in room. 0520: Pt up in stirrups. Bed broken down. 0522: Dr. Haney broke water at this time. Moderate amount of clear fluid noted. Pt. pushing. 0526: Delivery of viable male to mom's chest. Infant dried, warmed, and stimulated. 0528: 1st degree midline tear being repaired at this time. 0537: Placenta delivered and pitocin turned on wide open.
[2019-12-10] MEDS ORDERED: D5 LR IV SOLUTION 1,000 ML IV SCH (05:13)
[2019-12-10] MEDS ORDERED: LIDOCAINE 1% INJ 20 ML 20 ML VIAL ONE (05:13)
[2019-12-10 05:21] LABS: BASOPHILS % (AUTO) 0 % (0-10); EOSINOPHILS # (AUTO) 0.1 10^3/uL (0.0-0.3); EOSINOPHILS % (AUTO) 1 % (0-10); HEMATOCRIT 38 % (35-52); HEMOGLOBIN 12.8 G/DL (11.5-16.0); LYMPHOCYTES # (AUTO) 1.6 X 10^3 (1.0-4.0); LYMPHOCYTES % (AUTO) 31 % (12-44); MEAN CORPUSCULAR HEMOGLOBIN 28 PG (25-34); MEAN CORPUSCULAR HGB CONC 34 G/DL (32-36); MEAN CORPUSCULAR VOLUME 84 FL (80-99); MEAN PLATELET VOLUME 10.5 FL (7.4-10.4); MONOCYTES # (AUTO) 0.8 X 10^3 (0.0-1.0); MONOCYTES % (AUTO) 16 % (0-12); NEUTROPHILS # (AUTO) 2.7 X 10^3 (1.8-7.8); NEUTROPHILS % (AUTO) 52 % (42-75); PLATELET COUNT 227 10^3/uL (130-400); WHITE BLOOD COUNT 5.2 10^3/uL (4.3-11.0)
[2019-12-10] MEDS ORDERED: OXYTOCIN PRE-MIX DRIP 500 ML IV ONE (05:25)
[2019-12-10] MEDS ORDERED: BENZOCAINE/MENTHOL (DERMOPLAST) 60 ML CAN TP PRN (05:45)
[2019-12-10] MEDS ORDERED: TETANUS,DIPTH,PERTUSS P/F (BOOSTRIX) 0.5 ML VIAL IM ONE (05:45)
[2019-12-10] MEDS ORDERED: DIBUCAINE (NUPERCAINAL) 1% OINT 30 GM TOP PRN (05:45)
[2019-12-10] MEDS ORDERED: MEASLES,MUMPS,RUBELLA 1 EA INJ SQ ONE (05:45)
[2019-12-10] MEDS ORDERED: WITCH HAZEL(TUCKS) 40 EA JAR TOP PRN (05:45)
[2019-12-10] MEDS ORDERED: OXYTOCIN PRE-MIX DRIP 500 ML IV SCH (05:45)
--- NOTE | 2019-12-10 05:45 | NUR ---
0545: Pt taken out of stirrups after pericare is provided. Fundus massaged. Firm, midline, and at umbilicus. Minimal bleeding noted. 0600: Fundus massaged. Firm, midline, and at umbilicus. Minimal bleeding noted. 0615: Fundus massaged. Fundus firm and midline. Fundus is one under umbilicus. Moderate bleeding noted. 4 small quarter-egg size clots expressed at this time. 0630: Fundus massaged. Fundus is firm and midline. Minimal bleeding noted. No clots expressed. 0645: Fundus massaged. Fundus is firm and midline. Minimal bleeding noted. No clots expressed.
--- NOTE | 2019-12-10 05:48 | History & Physical-OB ---
OB - Chief Complaint & HPI Date/Time Date of Admission: Date of Admission: Dec 10, 2019 at 5:13 am Date seen by a Provider: Dec 10, 2019 Time Seen by a Provider: 05:15 Chief Complaint/History OB-Reason for Admission/Chief: Onset of Labor Hx : 3 Hx Para: 2 Expected Date of Delivery: Dec 10, 2019 Gestational Age in Weeks: 40 Gestational Age in Days: 0 Other reason for admission: Patient presents in active labor. Admission Nurse Assessment Rev: Yes Allergies and Home Medications Allergies Coded Allergies: No Known Drug Allergies (Unverified , 07/08/17) Home Medications Docusate Sodium 100 Mg Capsule, 100 MG PO BID PRN for CONSTIPATION-1ST LINE Prescribed by: OBDULIO ANSARI on 12/10/18 08 Ferrous Sulfate 325 Mg Tablet, 325 MG PO DAILY Prescribed by: OBDULIO ANSARI on 07/10/17 0821 Hydrocodone Bit/Acetaminophen 1 Tab Tab, 1-2 TAB PO Q4H PRN for PAIN-MODERATE Prescribed by: OBDULIO ANSARI on 12/10/18 08 Ibuprofen 600 Mg Tablet, 600 MG PO Q6H Prescribed by: OBDULIO ANSARI on 12/10/18 0810 Vit W-Ca,Fe,FA(<1 mg) 1 Each Tablet, 1 TAB PO DAILY, (Reported) Patient Home Medication List Home Medication List Reviewed: Yes OB - History Hx of Present Care: Yes Ultrasounds: Normal mid trimester US Obstetrical Complications: None Medical Complications: None Delivery History Adverse Rxn to Tranfusion: No Patient Past Medical History none OB - Admission Exam Physical Exam HEENT: NCAT Heart: Rhythm Normal Lungs: Clear Abdomen: Gravid Extremities: Normal Reflexes: Normal Cervical Dilatation: 8cm Effacement: 100% Station: 0 Membranes: Intact Heart Rate: 130's Accelerations: Accelerations Present Decelerations: No Decelerations Short Term Variability: Present Skilled Nursing Variability: Average (6-25) Contractions on Admission: < 5 Minutes Apart Intensity: Firm Labs Laboratory Tests Test 12/10/19 05:10 Range/Units White Blood Count 5.2 4.3-11.0 10^3/uL Red Blood Count 4.51 4.35-5.85 10^6/uL Hemoglobin 12.8 11.5-16.0 G/DL Hematocrit 38 35-52 % Mean Corpuscular Volume 84 80-99 FL Mean Corpuscular Hemoglobin 28 25-34 PG Mean Corpuscular Hemoglobin Concent 34 32-36 G/DL Red Cell Distribution Width 13.0 10.0-14.5 % Platelet Count 227 130-400 10^3/uL Mean Platelet Volume 10.5 H 7.4-10.4 FL Neutrophils (%) (Auto) 52 42-75 % Lymphocytes (%) (Auto) 31 12-44 % Monocytes (%) (Auto) 16 H 0-12 % Eosinophils (%) (Auto) 1 0-10 % Basophils (%) (Auto) 0 0-10 % Neutrophils # (Auto) 2.7 1.8-7.8 X 10^3 Lymphocytes # (Auto) 1.6 1.0-4.0 X 10^3 Monocytes # (Auto) 0.8 0.0-1.0 X 10^3 Eosinophils # (Auto) 0.1 0.0-0.3 10^3/uL Basophils # (Auto) 0.0 0.0-0.1 10^3/uL OB - Assessment/Plan/Diagnosis Assessment Assessment: active labor Admission Dx 29 yo @ 40.0 weeks Active labor GBS neg Admission Status: Inpatient Order (span 2 midnights) Reason for Inpatient Admission: Active labor at term Plan Plan: Expectant Management OBDULIO ANSARI DO Dec 10, 2019 5:48 am
--- NOTE | 2019-12-10 05:51 | OB Labor & Delivery Record ---
L&D History Date of Service Date of Service: Dec 10, 2019 History Expected Date of Delivery: Dec 10, 2019 Gestational Age in Weeks: 40 Hx : 3 Hx Para: 2 Complications Events: Routine care Operative Indications (Cesarea: N/A-Vaginal Delivery Intrapartal Events: None, Precipitous Labor < 3 hrs L&D Stage1 Stage One Onset of Labor - Date: Dec 10, 2019 Monitors and Tracing Monitor Mode: External Monitor Accelerations: Uniform Monitor Decelerations: None Station: 0 Longterm Variability: Average (6-10) Short Term Variability: Present Presentation: Vertex Rupture of Membranes Spontaneous Ruture of Membrane: No Amniotic Membrane Rupture Time: 05:30 Amniotic Membrane Fluid Desc.: Clear Vaginal Bleeding Description: Normal Show Progress/Notes Patient presented 8-9 cm dilated. No analgesia, so I came to the hospital, by the time she had her IV in place was complete with bulging membranes to +2 station. L&D Stage2 Stage Two Stage II Date: Dec 10, 2019 Monitors and Tracing Monitor Mode: External Heart Rate: 145 Monitor Accelerations: Uniform Monitor Decelerations: Variable Longterm Variability: Average (6-10) Short Term Variability: Present Position: Right Occiput Anterior Presentation: Vertex Cord Descript/Complications Cord Vessel Description: 3 Vessels Complications nuchal cord reduced x 1 Delivery Type Delivery Method: Spontaneous Vaginal Anterior Shoulder: Right Episiotomy/Perineal Laceration Laceraction(s)/Extensions: Yes Episiotomy Description: Perineal Extension/lac, 1st degree Degree (describe repair) 1st degree perineal laceration repaired using 3-0 rapide Condition of Infant Delivery 1 minute Comment: 9 5 minute Comment: 9 Notes Live male infant weight 8lbs 10 oz Condition of Infant Condition of : Living Exam: No Observed Abnormalities Resuscitation Resuscitation: N/A - Spontaneous Resp L&D Stage3 Stage Three Stage III Date: Dec 10, 2019 Pictocin Pitocin Administration Comment: 30 mu wide open at delivery of placenta Placenta Delivery Placenta Delivery: Spontaneous Delivery Summary Summary Estimated blood loss (mL): 200 Attending at delivery: Obdulio Ansari DO Condition of Delivery Examined: Cervix Examined, Uterus Explored Post Hemorrhage: No Condition of Mother stable Condition of Infant (s) stable OBDULIO ANSARI DO Dec 10, 2019 5:51 am
[2019-12-10] MEDS ORDERED: HYDROcodone/APAP 5 MG/325 MG (LORTAB) TAB PO PRN (06:00)
[2019-12-10] MEDS ORDERED: CATHETER FLUSH 10 ML SYR IV SCH ×2 (06:00)
[2019-12-10] MEDS: IBUPROFEN 600 MG (MOTRIN) TAB PO SCH ×3 (06:46→17:54)
--- NOTE | 2019-12-10 07:30 | NUR ---
pt up to bathroom voided without difficulty standby assist. to wheelchair and transferred to room 310. all personal belongings with pt. Addendum: 12/10/19 at 1049 by JUANITA MAR RN Fundus firm and 1 below umbilicus. no clots expressed. pt up to bathroom with standby assist voided without difficulty. v-pad changed mod amount of rubra on pad. Pt to wheel chair and transferred to 310.
--- NOTE | 2019-12-10 07:40 | NUR ---
pt moved to via wheel chair. IV to SL. accompanied. to room 310. to bed with out difficulty.
[2019-12-10] MEDS: PRENATAL VITAMIN 1 EA TAB PO SCH (10:21)
[2019-12-10] MEDS: DOCUSATE SODIUM 100 MG (COLACE) CAP PO SCH ×2 (10:21→20:33)
[2019-12-10] MEDS: FERROUS SULF 325 MG (IRON) TAB PO SCH (10:21)
--- NOTE | 2019-12-10 10:22 | NUR ---
PT REQUESTED AND RECEIVED ABDOMINAL BINDER WITH INSTRUCTIONS. PT VERBALIZED UNDERSTANDING.
--- NOTE | 2019-12-10 12:30 | NUR ---
REPORT RECEIVED FROM JUANITA OCHOA AT THIS TIME
--- NOTE | 2019-12-10 13:30 | NUR ---
THIS RN AT BEDSIDE, INTRODUCES SELF. FUNDUS FIRM MIDLINE 1 BELOW UMBILICUS, SMALL RUBRA. PT AMBULATING WELL INDEPENDENTLY TO BATHROOM AND AROUND ROOM. DENIES NEEDS AT THIS TIME. AT BEDSIDE. CALL LIGHT WITHIN REACH.
[2019-12-11] MEDS: IBUPROFEN 600 MG (MOTRIN) TAB PO SCH ×2 (00:30→06:18)
[2019-12-11 00:31] VITALS: BP 106/55
[2019-12-11 04:30] VITALS: BP 96/54
[2019-12-11 05:39] LABS: BASOPHILS % (AUTO) 0 % (0-10); EOSINOPHILS # (AUTO) 0.1 10^3/uL (0.0-0.3); EOSINOPHILS % (AUTO) 2 % (0-10); HEMATOCRIT 35 % (35-52); HEMOGLOBIN 11.4 G/DL (11.5-16.0); LYMPHOCYTES # (AUTO) 2.6 X 10^3 (1.0-4.0); LYMPHOCYTES % (AUTO) 45 % (12-44); MEAN CORPUSCULAR HEMOGLOBIN 28 PG (25-34); MEAN CORPUSCULAR HGB CONC 32 G/DL (32-36); MEAN CORPUSCULAR VOLUME 86 FL (80-99); MEAN PLATELET VOLUME 10.1 FL (7.4-10.4); MONOCYTES # (AUTO) 0.8 X 10^3 (0.0-1.0); MONOCYTES % (AUTO) 13 % (0-12); NEUTROPHILS # (AUTO) 2.2 X 10^3 (1.8-7.8); NEUTROPHILS % (AUTO) 39 % (42-75); PLATELET COUNT 216 10^3/uL (130-400); RED CELL DISTRIBUTION WIDTH 12.7 % (10.0-14.5); WHITE BLOOD COUNT 5.8 10^3/uL (4.3-11.0)
--- NOTE | 2019-12-11 07:24 | Postpartum Progress Note ---
JARAD GARCIA,MED STUDENT 12/11/19 0724: Note Note Day # 1 Subjective: Patient is without complaints. Ambulating, voiding. Tolerating a regular diet without nausea or vomiting. Normal lochia. Pain is well controlled with oral pain medications. Objective: Physical Exam: General - Alert and oriented, no apparent distress Abdomen - Soft, appropriately tender to palpation, non-distended, fundus firm at umbilicus Extremities - no edema, negative Melissa's bilaterally Assessment: post- day # 1, status post spontaneous vaginal delivery. Recovering well, hemodynamically stable Plan: Routine care. Encourage breast feeding. Encourage ambulation. Ferrous sulfate supplementation. Plan for discharge today Vitals - Labs Vital Signs - I&O Vital Signs Date Time Temp Pulse Resp B/P (MAP) Pulse Ox O2 Delivery O2 Flow Rate FiO2 12/11/19 04:30 36.2 73 18 96/54 (68) Room Air 12/11/19 00:31 36.4 69 18 106/55 (72) 97 Room Air 12/10/19 20:31 36.5 78 18 108/68 (81) 98 Room Air 12/10/19 16:00 36.7 78 16 108/56 (73) 98 Room Air 12/10/19 12:03 37.0 70 16 106/56 (73) 97 Room Air 12/10/19 07:35 37.1 85 18 106/60 (75) Room Air Labs Laboratory Tests 12/11/19 05:30: White Blood Count 5.8, Red Blood Count 4.14L, Hemoglobin 11.4L, Hematocrit 35, Mean Corpuscular Volume 86, Mean Corpuscular Hemoglobin 28, Mean Corpuscular Hemoglobin Concent 32, Red Cell Distribution Width 12.7, Platelet Count 216, Mean Platelet Volume 10.1, Neutrophils (%) (Auto) 39L, Lymphocytes (%) (Auto) 45H, Monocytes (%) (Auto) 13H, Eosinophils (%) (Auto) 2, Basophils (%) (Auto) 0, Neutrophils # (Auto) 2.2, Lymphocytes # (Auto) 2.6, Monocytes # (Auto) 0.8, Eosinophils # (Auto) 0.1, Basophils # (Auto) 0.0 ZAIN ANSARI DO 12/11/19 0757: Note Note Verification and Attestation of Medical Student E/M Service A medical student performed and documented this service in my presence. I reviewed and verified all information documented by the medical student and made modifications to such information, when appropriate. I personally performed the physical exam and medical decision making. Zain Ansari, Dec 11, 2019,07:57 JARAD GARCIA,MED STUDENT Dec 11, 2019 07:24 ZAIN ANSARI DO Dec 11, 2019 07:57
[2019-12-11] MEDS ORDERED: ACHD5005 PO (08:22)
[2019-12-11] MEDS ORDERED: IBUP-844 PO (08:22)
[2019-12-11] MEDS ORDERED: BENZ78AE2 TP (08:22)
[2019-12-11] MEDS ORDERED: DOCU-244 PO (08:22)
--- NOTE | 2019-12-11 08:23 | Discharge Inst-Women's Service ---
Discharge Inst-Women's Serv Depart Medication/Instructions New, Converted or Re-Newed RX: RX on Chart Problems Reviewed?: Yes Consults/Follow Up Additional Follow Up: Yes Orders/Referrals Dr. Ansari in 6 weeks Activity Activity: Activity as Tolerated Driving Instructions: No Driving for 1 Week NO SMOKING: NO SMOKING Nothing Inside Vagina: No Douching, No [place], No Tampons Diet Discharge Diet: No Restrictions Symptoms to Report to : Bleeding Excessive, Pain Increased, Fever Over 101 Degrees F, Vaginal Bleeding Increase, Questions/Concerns For Any Problems or Questions: Contact Your Physician OBDULIO ANSARI DO Dec 11, 2019 08:22
[2019-12-11] MEDS: PRENATAL VITAMIN 1 EA TAB PO SCH (09:09)
[2019-12-11] MEDS: FERROUS SULF 325 MG (IRON) TAB PO SCH (09:09)
[2019-12-11] MEDS: DOCUSATE SODIUM 100 MG (COLACE) CAP PO SCH (09:09)
[2019-12-11 09:10] VITALS: BP 98/61
--- NOTE | 2019-12-11 12:40 | NUR ---
CULLEN CHASE demonstrates understanding of discharge instructions and accurately returns instructions upon questioning. Copy of Post-Discharge Instructions and Medication Discharge Instructions given to patient. CULLEN CHASE is able to manage continuing needs after discharge. Patients belongings returned to patient. Skin dry and intact; no breakdown noted. Patient discharged from 3310-1 on 12-11-19 at 1240. CULLEN CHASE left floor via ambulation, accompanied by staff and s/o.
== END 2019-12-11 12:40 | disposition home or self-care (01) | DRG 807 ==
LOC: WSo 04:26 → LDRP 04:27 → WSo 05:13 → LDRP 07:40
PROVIDERS: ADMIT Obstetrics & Gynecology; ATTEND Obstetrics & Gynecology
PROC: 10E0XZZ Delivery of Products of Conception, External Approach (ICD-10-PCS; principal; 2019-12-10)
PROC: 0HQ9XZZ Repair Perineum Skin, External Approach (ICD-10-PCS; 2019-12-10)
PROC: 0W8NXZZ Division of Female Perineum, External Approach (ICD-10-PCS; 2019-12-10)
DX: O62.3 Precipitate labor (principal); O70.0 First degree perineal laceration during delivery; O69.81X0 Labor and delivery complicated by cord around neck, without compression, not applicable or unspecified; Z3A.40 40 weeks gestation of pregnancy; Z37.0 Single live birth
CPT/HCPCS: 36415; 85025; 86850; 86900; 86901; 99212